=== PATIENT | male | born 1940 | race Caucasian/White ===

== ENCOUNTER 2016-10-22 17:13 | Inpatient (IN) ==
[2016-10-22] MEDS ORDERED: TYLENOL PO ONE (17:30)
[2016-10-22] MEDS ORDERED: VANCOMYCIN 1 GM/NS 1 GM/250 ML IVPB IV ONE ×2 (18:26→23:00)
--- NOTE | 2016-10-22 18:32 | PROVIDER DOCUMENTATION ---
HPI-Musculoskeletal Pain/Inj - GENERAL Chief Complaint: Fever Stated Complaint: EXTREMITY PAIN Time Seen by Provider: 10/22/16 17:51 Source: patient, family - HX OF PRESENT ILLNESS-MUSKULOSKELTAL Nature of Presenting Problem: PT C/O PAIN AND INCREASED DRAINAGE FROM RIGHT FOOT WOUND THAT HE HAS HAD FOR ABOUT A YEAR. STS HE HAS BEEN FOLLOWING UP WITH HIS PHYSICIAN AND GOING TO THE WOUND CLINIC DIRECTED. STS TODAY HE HAS HAD FEVER, CHILLS, AND SWELLING TO HIS RIGHT ANKLE. Quality of Pain: reports: none Onset/Duration: other (SEE NARRATIVE) Timing: still present Modifying Factors: improves with: nothing Any recent injury?: No Similar Symptoms Previously?: Yes Recently seen or treated by another doctor?: Yes (DR. LEE) - LOWER EXTREMITY PAIN/INJURY Context / Method of Injury: reports: other (DIABETIC FOOT WOUND. PT STS NO PAIN R/T NEUROPATHY) Associated Symptoms: reports: denies symptoms Review of Systems - Adult - REVIEW OF SYSTEMS - ADULT Constitutional: reports: chills, fever Eyes: reports: no symptoms reported. denies: blurred vision Ears, Nose, Mouth & Throat: reports: no symptoms reported Cardiovascular: reports: no symptoms reported. denies: chest pain Respiratory: reports: no symptoms reported. denies: cough, dyspnea on exertion , shortness of breath Gastrointestinal: reports: frequent heartburn. denies: abdominal pain, diarrhea , difficulty swallowing, nausea, vomiting Genitourinary: reports: no symptoms reported Musculoskeletal: reports: see HPI Integumentary: reports: skin sores/ulcer Neurological: reports: no symptoms reported, numbness (BLE R/T NEUROPATHY). denies: dizziness/vertigo, headache/migraines, syncope Psychiatric: reports: no symptoms reported Endocrine: reports: see HPI Hematologic/Lymphatic: reports: no symptoms reported Allergic/Immunologic: reports: no symptoms reported Past History - Adult - PAST MEDICAL HISTORY-ADULT Review of Records: reports: Nursing Assessment Review, Medications Reviewed, Social history reviewed & non-contributory. Major Childhood Illnesses: reports: denies history Cardiovascular: reports: CAD, HTN, VT Respiratory: reports: sleep apnea Gastrointestinal: reports: diverticulosis Obstetrical/Gynecological: reports: denies history Genitourinary: reports: prostatitis Musculoskeletal: reports: denies history Neurological: reports: denies history Psychiatric: reports: denies history Endocrine/Immune: reports: Diabetes Other Conditions: reports: denies history - PRIOR SURGERIES/PROCEDURES Surgical/Procedure History: reports: cholecystectomy - IMMUNIZATION STATUS Childhood Immunizations: See Nurse Assessment Flu Vaccine: See Nurse Assessment - FAMILY HISTORY Family History: reviewed, not pertinent - SOCIAL HISTORY Smoking: quit greater than 1 year Provider spent 3-5 mins advising pt. on dangers of tobacco.: Discussed manners to quit use, and f/u contacts for add'l counseling. Physical Exam-Injury Related - Physical Exam-Injury Related Initial Vital Signs Reviewed: Yes General Appearance: appears well, alert, no apparent distress Eyes: PERRL/EOMI Head, Ears, Nose, Mouth & Throat: normocephalic/atraumatic Neck: non-tender, full range of motion, supple, normal inspection Respiratory: chest non-tender, lungs clear, normal breath sounds Cardiovascular: regular rate, rhythm Peripheral Pulses: dorsalis-pedis (R): 3+, dorsalis-pedis (L): 3+ Abdominal Exam: normal bowel sounds, non tender, soft Lymphatic: no adenopathy Extremity: normal range of motion, non-tender, no pedal edema, inflammation, pedal edema, swelling Integumentary: warm/dry, other (CIRCULAR WOUND TO SOLE OF RIGHT FOOT, DRAINING CLEAR/WHITE FLUID) Neurologic: grossly normal, sensory deficit (DECREASED SENSATION BELOW BILATERAL KNEES, UNABLE TO DIFFERENTIATE SHARP/DULL) Psych/Mental Status: normal mood/affect Progress - PLAN OF CARE/RESULTS Progress/Plan/Lab Results: Vital Signs - 8 hr 10/22/16 17:24 10/22/16 19:57 Temperature 100.9 F H 100.2 F H Pulse Rate 73 71 Respiratory Rate 18 18 Blood Pressure 174/70 158/81 O2 Sat by Pulse Oximetry 98 94 L Laboratory Results - last 24 hr 10/22/16 10/22/16 18:32 18:32 WBC 14.13 H RBC 3.93 L Hgb 12.6 L Hct 36.9 L MCV 93.9 MCH 32.1 H MCHC 34.1 RDW Std Deviation 12.1 Plt Count 299 MPV 9.7 Immature Gran % (Auto) 0.2 Neut % (Auto) 78.6 H Lymph % (Auto) 8.8 L Lawrence % (Auto) 9.3 Eos % (Auto) 2.8 Baso % (Auto) 0.3 Immature Gran # (Auto) 0.03 Neut # (Auto) 11.11 H Lymph # (Auto) 1.24 Lawrence # (Auto) 1.32 H Eos # (Auto) 0.39 Baso # (Auto) 0.04 Sodium 134 L Potassium 4.5 Chloride 100 Carbon Dioxide 18 L Anion Gap 15 BUN 31 H Creatinine 1.7 H Estimated GFR/1.73 m2 40 BUN/Creatinine Ratio 18 Glucose 90 Calculated Osmolality 274 Calcium 8.9 Total Bilirubin 0.60 AST 14 ALT 11 Alkaline Phosphatase 42 Total Protein 6.8 Albumin 3.5 Globulin 3.0 Albumin/Globulin Ratio 1.0 Orders Category Date Time Status Admit - [facility] Routine AdmDCTranf 10/22/16 19:37 Ordered Activity - Bed Rest with BRP ORDERED Care 10/22/16 19:37 Active Call Admitting on Arrival AT ADMISSION Care 10/22/16 19:39 Active Saline Loc NOW Care 10/22/16 18:26 Active Vital Signs Order ROUTINE Care 10/22/16 19:37 Active Z-Document. for Tele Applied ORDERED Care 10/22/16 19:39 Active Diabetic Diet Diet 10/22/16 19:39 Active CHEST-2 VIEWS [RAD] Stat Exams 10/22/16 19:46 Ordered FOOT COMPLETE RIGHT [RAD] Stat Exams 10/22/16 18:21 Taken ABSCESS CULTURE INC GRAM STAIN [RM] Routine Lab 10/22/16 19:51 Ordered BLOOD CULTURE [BLDCUL] Stat Lab 10/22/16 18:21 Ordered CBC WITH ELECTRONIC DIFF [HEME] Stat Lab 10/22/16 18:32 Completed CMP [COMPREHENSIVE METABOLIC PANEL] [CHEM] Routine Lab 10/23/16 07:00 Ordered COMPREHENSIVE METABOLIC PANEL [CHEM] Stat Lab 10/22/16 18:32 Completed 0.9% Sodium Chloride Inj [Ns] 1,000 ml Med 10/22/16 19:37 Discontinued IV KVO Acetaminophen [Tylenol] Med 10/22/16 17:30 Discontinued 1,000 mg PO NOW ONE Insulin Human Regular (Wilkerson [Humulin R (Wilkerson)] Med 10/22/16 19:43 Discontinued See Protocol SUBQ NOW ONE Vancomycin 1 gm/Ns Med 10/22/16 18:26 Discontinued 1 gm in 250 ml IV NOW Telemetry [OM.EQ] Routine Oth 10/22/16 19:37 Active EKG [EKG] Stat Ther 10/22/16 19:58 Ordered Transfer/Admit Order [TRANSFER] Routine Transfer 10/22/16 19:44 Ordered Result Diagrams: 10/22/16 18:32 10/22/16 18:32 - REASSESSMENT Reassessment #1 Time Reassessed: 19:30 (DISCUSSED PT WITH DR. BROWN WHO REVIEWED LABS AND IMAGING AND ASSESSED PT.) Status: unchanged - EKG 1 Time of EKG reading by physician:: 20:19 EKG Read and Signed by:: Espinoza Brown Rate: 69 Rhythm: sinus QRS: RBB IA Interval: prolonged ST Wave: non-specific ST changes - CONSULTS/PCP/HOSPITALIST Notification #1 *Consult/PCP/Hospitalist*: DR. CASEY (HOSPITALIST) Time Discussed: 19:35 (ADMIT PT AND ORDER CBC, CMP IN AM. ORDERS TO XFER TO FLOOR.) Consult Disposition: Admit Departure - Departure Date of Disposition Decision: 10/22/16 Time of Disposition Decision: 19:36 DIAGNOSIS: Diabetic foot ulcer Qualifiers: Diabetic foot ulcer location: unspecified part of foot Diabetes mellitus type: type 1 Laterality: right Non-pressure ulcer stage: limited to breakdown of skin Qualified Code(s): E10.621 - Type 1 diabetes mellitus with foot ulcer Disposition: ADMITTED INPATIENT 09 Certified Medical Emergency: Emergent Condition: Stable - Critical Care Note This patient required my direct & personal management of CC.: No Attestation - Physician/ AMIE Attestation Patient care was provided by Advanced Practice Provider:: Yes Advanced Practice Provider:: Selene Anthony Advanced Practice Provider documentation review:: The Mid-level provider documentation, treatment plan and medical decision making was reviewed by the physician who agrees with all treatment and medical decision making by the MLP. The physician spent face to face time with patient:: Yes Advanced Practice Provider documentation review:: The physician spent face to face time with this patient and agrees with all MLP documentation, treatment, and medical decision making by the MLP. See provider notes for further information.
[2016-10-22 19:23] LABS: MANUAL DIFF NEEDED? NO
[2016-10-22 19:27] LABS: BASO% 0.3 % (0.0-0.8); EOS# 0.39 X1000 (0.0-0.7); EOS% 2.8 % (0.0-10.0); HEMATOCRIT 36.9 % (42.0-52.0); HEMOGLOBIN 12.6 g/dL (14.0-18.0); IMM GRAN# 0.03 X1000 (0.0-0.04); IMM GRAN% 0.2 % (0.0-0.5); LYMPH# 1.24 X1000 (1.2-3.4); LYMPH% 8.8 % (20.5-51.1); MCH 32.1 PG (27-31); MCHC 34.1 g/dL (33-37); MCV 93.9 FL (81-99); MONO# 1.32 X1000 (0.11-0.59); MONO% 9.3 % (1.7-9.3); MPV 9.7 FL (7.4-10.4); NEUT% 78.6 % (42.2-75.2); PLT 299 X1000 (130-400); RBC 3.93 XMIL (4.7-6.1)
[2016-10-22 19:37] LABS: ALBUMIN 3.5 g/dL (3.5-5.0); CALCIUM 8.9 mg/dL (8.8-10.2); POTASSIUM 4.5 mmol/L (3.5-5.1); TOTAL BILIRUBIN 0.6 mg/dL (0.20-1.00); TOTAL PROTEIN 6.8 g/dL (6.3-8.3)
[2016-10-22] MEDS ORDERED: NS 1,000 ML IV ONE (19:37)
[2016-10-22] MEDS ORDERED: HUMULIN R (PARKWAY) SUBQ ONE (19:43)
--- NOTE | 2016-10-22 20:24 | EKG Report ---
Test Performed on : 10/22/2016 8:07:07 PM Test Reason : ADMIT Blood Pressure : / mmHG Vent. Rate : 069 BPM Atrial Rate : 069 BPM P-R Int : 250 ms QRS Dur : 146 ms QT Int : 430 ms P-R-T Axes : 027 -57 015 degrees QTc Int : 460 ms Sinus rhythm. with 1st degree AV block. Right bundle branch block Left anterior fascicular block Bifascicular block Minimal voltage criteria for LVH, may be normal variant Abnormal ECG No previous ECGs available Unconfirmed Result
[2016-10-22] MEDS ORDERED: VANCOMYCIN IV PER PHARMACY MISC SCH ×2 (21:43→22:00)
[2016-10-22] MEDS ORDERED: ZOFRAN IV PRN (21:46)
[2016-10-22] MEDS ORDERED: TYLENOL PO PRN (21:46)
[2016-10-22] MEDS ORDERED: NS 1,000 ML ONE (23:08)
[2016-10-22] MEDS: ROCEPHIN 1 GM/NS 1 GM/50 ML IVPB IV SCH (23:20)
[2016-10-23] MEDS ORDERED: VANCOMYCIN 1 GM/NS 1 GM/250 ML IVPB ONE (03:44)
[2016-10-23 06:19] LABS: MANUAL DIFF NEEDED? NO
[2016-10-23 06:22] LABS: BASO% 0.3 % (0.0-0.8); EOS# 0.56 X1000 (0.0-0.7); EOS% 6.1 % (0.0-10.0); HEMATOCRIT 34.2 % (42.0-52.0); HEMOGLOBIN 11.4 g/dL (14.0-18.0); IMM GRAN# 0.01 X1000 (0.0-0.04); IMM GRAN% 0.1 % (0.0-0.5); LYMPH# 1.77 X1000 (1.2-3.4); LYMPH% 19.3 % (20.5-51.1); MCH 31.7 PG (27-31); MCHC 33.3 g/dL (33-37); MONO% 13.1 % (1.7-9.3); MPV 9.8 FL (7.4-10.4); NEUT% 61.1 % (42.2-75.2); PLT 264 X1000 (130-400)
[2016-10-23 06:49] LABS: ALBUMIN 3.1 g/dL (3.5-5.0); CALCIUM 8.6 mg/dL (8.8-10.2); POTASSIUM 4.1 mmol/L (3.5-5.1); TOTAL BILIRUBIN 0.5 mg/dL (0.20-1.00); TOTAL PROTEIN 6.2 g/dL (6.3-8.3)
--- NOTE | 2016-10-23 07:11 | Diag Imaging Result Doc PS360 ---
EXAM: FOOT COMPLETE RIGHT HISTORY: RT FOOT WOUND, POSS OSTEOMYELITIS TECHNIQUE: Right foot three views COMMENT: There is some pes cavus. There is plantar spurring of the calcaneus. There is soft tissue swelling laterally at the level of the fifth metatarsophalangeal joint. Some periosteal reaction is seen laterally at the base of the fifth metatarsal. There is no evidence of erosion. IMPRESSION: Soft tissue swelling. No definite evidence of osteomyelitis. Electronically signed by Casimiro Chirinos 10/23/2016 7:09 AM
--- NOTE | 2016-10-23 07:14 | Diag Imaging Result Doc PS360 ---
EXAM: CHEST-2 VIEWS HISTORY: COUGH, FEVER TECHNIQUE: Two views of the chest COMMENT: There are no previous studies. There is no evidence of acute cardiac or pulmonary disease. IMPRESSION: No evidence of acute disease. Electronically signed by Casimiro Chirinos 10/23/2016 7:12 AM
[2016-10-23] MEDS ORDERED: SANTYL OINT TOP PRN (07:52)
[2016-10-23] MEDS: ASPIRIN PO SCH (08:28)
[2016-10-23] MEDS: ATACAND PO SCH ×2 (08:28→20:50)
[2016-10-23] MEDS: BUMEX PO SCH (08:28)
[2016-10-23] MEDS ORDERED: NORVASC PO SCH ×2 (09:00→21:00)
[2016-10-23] MEDS: HUMALOG DOSE (PARKWAY) SUBQ SCH ×4 (09:55→20:13)
--- NOTE | 2016-10-23 10:23 | HISTORY AND PHYSICAL ---
CHIEF COMPLAINT: Right foot swelling. HISTORY OF PRESENT ILLNESS: Patient is a 76-year-old male, who has a known history of diabetes and diabetic foot ulceration. He has actually had his left 5th digit removed some time ago. He started to have an ulcer on the bottom of his right foot and his right 5th digit removed some time ago. He has recently noted an ulceration under the 4th digit. He has been going to wound therapy as an outpatient and has continued to improve, although the last 2 days he has noted increased swelling in his foot and had a fever yesterday and therefore he came to the emergency department. REVIEW OF SYSTEMS: Positive fevers, chills yesterday, swelling of his right foot up to his right ankle. Denies any drainage. Denies any true pain. Denies chest pain, palpitations. Does state he has frequent heartburn, but this is nothing new. Denies any dysuria, frequency. Denies hesitancy, constipation, melena, hematochezia. Denies any changes in vision, blurred vision. Denies any focalized weakness. PAST MEDICAL HISTORY: 1. Known coronary artery disease. Hypertension. 2. Has had a myocardial infarction in the past. 3. History of prostate infection and benign prostatic hypertrophy 4. Known sleep apnea. 5. Diverticulosis. 6. Positive for diabetes. 7. He has had a cholecystectomy in the past, as well as removal of his right 5th digit on his foot secondary to diabetes. ALLERGIES: Clonidine. MEDICATIONS: No current active list. PHYSICAL EXAMINATION: VITAL SIGNS: Temperature 100.9 current, pulse 63, respiratory rate 18, BP 174/70, sat 98% on room air. GENERAL: Patient is awake, alert, oriented. He is currently in no respiratory distress. Pleasant white male, who is lying in bed comfortably. HEENT: Normocephalic, atraumatic. NECK: Supple. CARDIOVASCULAR: Regular rate. CHEST: Clear. ABDOMEN: Soft. EXTREMITIES: Moves all extremities. NEUROLOGIC: No focal changes from previous exams. He does have decreased sensation of bilateral lower extremities. SKIN: He is noted to have a small ulceration on the right foot pain, at the base of his 4th digit. Does not have any pus or drainage. Has minimal surrounding erythema. DIAGNOSTIC DATA: WBCs 14. Hemoglobin and hematocrit 12 and 36. BUN 31, creatinine 1.7. ASSESSMENT: 1. Diabetic foot ulceration. 2. Diabetes with fairly good home control. 3. Leukocytosis. 4. Fever. 5. Sepsis with leukocytosis, fever, and a foot infection. 6. Hypertension. Patient does not appear to be on any blood pressure medications. We will start on medication and follow. cc: Ray Fitzgerald MD
[2016-10-23] MEDS ORDERED: LANTUS INSULIN (PARKWAY) SUBQ SCH (21:00)
[2016-10-23] MEDS: ROCEPHIN 1 GM/NS 1 GM/50 ML IVPB IV SCH (22:37)
[2016-10-23] MEDS ORDERED: VANCOMYCIN 1.5 GM in NS 250 ML IV SCH (23:00)
[2016-10-24 06:07] VITALS: BP 147/68
[2016-10-24] MEDS: ASPIRIN PO SCH (10:06)
[2016-10-24] MEDS: ATACAND PO SCH (10:06)
[2016-10-24] MEDS: BUMEX PO SCH (10:06)
[2016-10-24] MEDS: HUMALOG DOSE (PARKWAY) SUBQ SCH ×2 (10:14→14:32)
--- NOTE | 2016-10-24 11:29 | VASCULAR LAB ---
PROCEDURE NAME: Arterial Bilateral Legs - 10/23/2016 STUDY: Lower extremity arterial study. REQUESTING PHYSICIAN: Dr. Fitzgerald. INDICATIONS: Ulcers of bilateral lower extremities. FINDINGS: Segmental pressures are as follows: Right brachial 154, left 152. Right proximal thigh not read because of short leg, left not read because of short legs. Right distal thigh greater than 200, left greater than 200. Right popliteal greater than 200, left greater than 200. Right dorsalis pedis greater than 200, left 196. Right posterior tibial greater than 200, left 198. Right toe 151, left 129. Right CHARLIE not calculated, left 129. Right TBI 0.98, left 0.84. Waveform analysis: Waveforms appear to be intact to bilateral lower extremities to the level of the toe. INTERPRETATION: Perfusion noted to bilateral lower extremities. This patient's study was somewhat limited by the patient's short size. At this time, there is perfusion noted to bilateral toes which should suggest the ability to heal wounds. cc: MD Ray Marshall MD
[2016-10-24] MEDS ORDERED: SEPTRA DS PO SCH (12:15)
--- NOTE | 2016-10-24 22:33 | DISCHARGE SUMMARY ---
ADMISSION DATE: 10/22/2016 DISCHARGE DATE: 10/24/2016 DISCHARGE DIAGNOSES: 1. Diabetic foot ulceration. 2. Diabetes with fairly good home control. 3. Leukocytosis. 4. Fever resolved. 5. Hypertension. MICROBIOLOGY: Blood cultures revealed no growth after 48 hours. Right foot culture revealed a gram-negative vladimir. DIAGNOSTICS: 1. 10/22/2016 foot x-ray reveals soft tissue swelling and no definite evidence of osteomyelitis. 2. Chest x-ray reveals no evidence of acute disease. 3. Extremity arterial study bilateral: Waveforms appear to be intact to bilateral lower extremities to the level of the toe. HOSPITAL COURSE: Mr. Green presented in to the emergency room with increasing right foot swelling and pain. He does have a history of diabetes and diabetic foot ulcerations having his left fifth toe removed some time ago. This episode began as an ulcer to the bottom of his right foot and his right fifth digit. Just recently he has noticed an ulceration under the 4th digit. He has been going to wound therapy and he felt he was improving although for the last 2 he did have some increased swelling and pain over the 2 days prior to coming in. He did have a white count of 14 which did decrease to 9. He was afebrile. He was started on and Rocephin for antibiotic coverage. He has been transitioned over to Bactrim DS for discharge. Of note, the culture to the abscess of his right foot has grown gram-negative rods. Once sensitivities return, antibiotics may be changed if appropriate. DISCHARGE PHYSICAL EXAMINATION: Vital Signs: Blood pressure is 147/68 with a heart rate of 61, respirations are 18, temperature is 98.7 degrees with a room air saturation of 100%. Cardiovascular: Regular rate and rhythm. S1 and S2 appreciated. Pulmonary: Breath sounds are clear. No increased work of breathing noted. Gastrointestinal: Abdomen is soft, nontender, nondistended with bowel sounds in all 4 quadrants. Extremities: No clubbing, cyanosis or edema to upper extremities or left lower extremity. He does have a little edema to his right foot. DISCHARGE DIET: Diabetic. DISCHARGE ACTIVITY: As tolerated. FOLLOWUP: 1. He needs to follow up at [facility] at his previously scheduled appointment. 2. He is to call Jasmin Salcedo, his primary care provider, for followup. DISCHARGE MEDICATIONS: 1. Bumex 0.5 p.o. b.i.d. 2. Norvasc 2.5 p.o. at bedtime. 3. Aspirin 81 mg daily. 4. Atacand 16 mg b.i.d. 5. Santyl ointment topically as directed per Wound Care. 6. NovoLog FlexPen 6 units subcutaneous t.i.d. as directed. 7. Bactrim DS 1 p.o. b.i.d. #28, no refills. DISPOSITION: He is being discharged home in stable condition with family members. TIME SPENT: This is a greater than 30 minute discharge. Dictated by BRAYDEN Miranda for Ray Fitzgerald MD cc: BRAYDEN Miranda MD
== END 2016-10-24 14:35 | disposition home or self-care (01) ==
LOC: P.ED 17:13 → P.MEDSURG 17:13
PROVIDERS: ATTEND Family Medicine